=== PATIENT | male | born 2000 | race Caucasian/White ===

== ENCOUNTER 2022-03-02 22:14 | Emergency (ER) | payer SELFPAY ==
[~2022-03-02] VITALS: Ht 167.6 cm; Wt 61.0 kg
[2022-03-03] MEDS ORDERED: IBUPROFEN 600MG TABLET PO ONE (02:45)
[2022-03-03] MEDS ORDERED: IBUP-2028 MT (05:25)
[2022-03-03 06:21] VITALS: BP 114/78
== END 2022-03-03 06:00 | disposition home or self-care (01) ==
LOC: ER 22:24
DX: S92.252A Displaced fracture of navicular [scaphoid] of left foot, initial encounter for closed fracture (principal); W13.0XXA Fall from, out of or through balcony, initial encounter; Y93.89 Activity, other specified; Y92.89 Other specified places as the place of occurrence of the external cause; F12.90 Cannabis use, unspecified, uncomplicated
CPT/HCPCS: 73090; 73110; 73130; 99284